=== PATIENT | female | born 1990 | race Caucasian/White ===

== ENCOUNTER 2018-07-06 19:42 | Emergency (ER) | payer OTHER ==
--- NOTE | 2018-07-06 20:11 | ERPHSYRPT ---
- History of Present Illness Time Seen by Provider: 07/06/18 20:01 Historian: patient Exam Limitations: no limitations Patient Subjective Stated Complaint: PT C/O CP SINCE WAKING THIS MORNING ET PALPITATIONS. PT C/O INTERMITTENT CP X 2 MONTHS, MORE FREQUENT IN LAST MONTH. PT STATES AROUND 10 DAYS AGO SHE "ALMOST PASSED OUT" WHEN SHE STARTED HAVING CP WHILE WORKING OUT. Triage Nursing Assessment: PINK/WARM/DRY, RESP EASY, A&OX4, STEADY GAIT TO ROOM FROM WAITING AREA. EKG DONE NO DISTRESS NOTED Physician History: 27-year-old white female previously healthy arrives with complaint of pain anterior chest located with 1 finger on the left upper chest lateral to the sternal border described as a tightness feels like she has a hard time breathing symptoms off and on for the past 2 weeks states it is been worse when she's added activity she states she felt like she passed out 2 weeks ago with activity states she woke up this morning had the above noted pain it has been going on all day she has had some slight shortness of breath she has no nausea no vomiting She apparently has been feeling as if her heart has been racing at times felt her heart rate of 127 home. Past medical history is negative past surgical history is negative Past surgical history negative Social history denies tobacco alcohol or illicit drug use Timing/Duration: other (intermittent chest pain for 2 weeks continuous since 9: 00 th) Quality: tightness Location: other (left upper anterior chest) Severity of Pain-Max: moderate Severity of Pain-Current: mild Modifying Factors: Improves With: exertion. Worsens With: antacids, breathing, coughing, defecating, eating, lying down, morphine, movement, nitroglycerin, oxygen, palpation, rest, aspirin, sitting up, change in position Associated Symptoms: palpitations, shortness of breath, No nausea, No vomiting, No heartburn, No abdominal pain, No cough, No hurts to breathe, No diaphoresis, No chills, No fever, No fatigue, No weakness, No swelling/lump in chest, No syncope, No rash, No headache, No dizziness, No back pain Prior Chest Pain/Cardiac Workup: no prior chest pain Nitro Today/Relief: no nitro taken today Aspirin Treatment Today: 81 mg x 4, provided by ED Allergies/Adverse Reactions: No Known Drug Allergies Allergy (Verified 07/06/18 19:58) Hx Tetanus, Diphtheria Vaccination/Date Given: Yes Hx Influenza Vaccination/Date Given: No Hx Pneumococcal Vaccination/Date Given: No - Review of Systems Constitutional: No Fever, No Chills Eyes: No Symptoms Ears, Nose, & Throat: No Symptoms Respiratory: Dyspnea, No Cough, No Cyanosis, No Dyspnea on Exertion (BALDERRAMA), No Stridor, No Wheezing Cardiac: Chest Pain, Palpitations, No Edema, No Syncope, No Orthopnea, No PND Abdominal/Gastrointestinal: No Abdominal Pain, No Nausea, No Vomiting, No Diarrhea Genitourinary Symptoms: No Dysuria Musculoskeletal: No Back Pain, No Neck Pain Skin: No Rash Neurological: No Symptoms, No Dizziness, No Focal Weakness, No Sensory Changes Psychological: No Symptoms Endocrine: No Symptoms All Other Systems: Reviewed and Negative - Past Medical History Pertinent Past Medical History: Yes Neurological History: No Pertinent History ENT History: No Pertinent History Cardiac History: No Pertinent History Respiratory History: No Pertinent History Endocrine Medical History: No Pertinent History Musculoskeletal History: No Pertinent History GI Medical History: No Pertinent History History: No Pertinent History Psycho-Social History: No Pertinent History Female Reproductive Disorders: No Pertinent History Other Medical History: NO OTHER MEDICAL ISSUES NOTED - Past Surgical History Past Surgical History: Yes Neuro Surgical History: No Pertinent History Cardiac: No Pertinent History Respiratory: No Pertinent History Gastrointestinal: No Pertinent History Genitourinary: No Pertinent History Musculoskeletal: Other Female Surgical History: Tubal Ligation Other Surgical History: TENDON REPAIR LEFT KNEE, TUBAL LIGATION - Social History Smoking Status: Former smoker Exposure to second hand smoke: Yes Drug Use: none Patient Lives Alone: No - Female History Hx Last Menstrual Period: APPROX 10-12 DAYS AGO Hx Now: No - Nursing Vital Signs Nursing Vital Signs: Initial Vital Signs Temperature 98.4 F 07/06/18 19:42 Pulse Rate 83 07/06/18 19:42 Respiratory Rate 14 07/06/18 19:42 Blood Pressure 139/90 07/06/18 19:42 O2 Sat by Pulse Oximetry 95 07/06/18 19:42 Pain Scale Pain Intensity 3 - Physical Exam General Appearance: no apparent distress, alert Eye Exam: PERRL/EOMI ( AND we can go ahead ), eyes nml inspection Ears, Nose, Throat Exam: normal ENT inspection, moist mucous membranes Neck Exam: normal inspection, non-tender, supple, full range of motion Respiratory Exam: normal breath sounds, lungs clear, No respiratory distress Cardiovascular Exam: regular rate/rhythm, normal heart sounds, capillary refill <2 sec Gastrointestinal/Abdomen Exam: soft, No tenderness, No mass Back Exam: normal inspection, No CVA tenderness, No vertebral tenderness Extremity Exam: normal inspection, normal range of motion Neurologic Exam: alert, oriented x 3, cooperative, manager employee relations II-XII nml as tested, normal mood/affect, sensation nml, No motor deficits Skin Exam: normal color, warm, dry SpO2 Interpretation: normal (95%) SpO2: 95 - Course Nursing assessment & vital signs reviewed: Yes EKG Interpreted by Me: RATE (81 bpm), Sinus Rhythm, NORMAL AXIS, Other (EKG: Sinus rhythm, 81 bpm, normal axis, no acute ST or T wave changes noted) - Radiology Exams Chest X-ray Interpretation: Interpreted by me (chest x-ray: No acute disease process noted) Ordered Tests: Active Orders 24 hr Category Date Time Status Hr Clerk STAT Care 07/06/18 20:06 Active EKG-ER Only STAT Care 07/06/18 20:05 Active IV Insertion STAT Care 07/06/18 20:05 Active Pulse Oximetry (ED) STAT Care 07/06/18 20:05 Active CHEST 1 VIEW (PORTABLE) Stat Exams 07/06/18 20:11 Taken CBC W DIFF Stat Lab 07/06/18 19:50 Completed CMP Stat Lab 07/06/18 19:50 Completed D-DIMER QUANTITATION Stat Lab 07/06/18 19:50 Completed HCG QUALITATIVE,SERUM Stat Lab 07/06/18 17:00 Completed TROPONIN Q3H Lab 07/06/18 20:15 Completed Medication Summary Discontinued Medications Generic Name Dose Route Start Last Admin Trade Name Freq PRN Reason Stop Dose Admin Aspirin 324 mg 07/06/18 20:12 07/06/18 20:16 Baby Aspirin 81 Mg Chew PO 07/06/18 20:13 324 mg STAT ONE Administration Sodium Chloride 1,000 mls @ 999 mls/hr 07/06/18 20:21 07/06/18 20:49 Sodium Chloride 0.9% 1000 Ml IV 07/06/18 21:21 Not Given .Q1H1M STA Sodium Chloride Confirm 07/06/18 20:43 Sodium Chloride 0.9% 1000 Ml Administered 07/06/18 20:44 Dose 1,000 mls @ ud .ROUTE .STK-MED ONE Lab/Rad Data: Laboratory Result Diagrams 07/06/18 19:50 07/06/18 19:50 Laboratory Results 07/06/18 07/06/18 07/06/18 Range/Units 20:15 19:50 19:50 WBC (4.0-10.5) K/mm3 RBC (4.1-5.4) M/mm3 Hgb (12.0-16.0) gm/dl Hct (35-47) % MCV (78-100) fl MCH (26-32) pg MCHC (32-36) g/dl RDW (11.5-14.0) % Plt Count (150-450) K/mm3 MPV (6-9.5) fl Gran % (36.0-66.0) % Eos # (Auto) (0-0.5) Absolute Lymphs (auto) (1.0-4.6) Absolute Monos (auto) (0.0-1.3) Lymphocytes % (24.0-44.0) % Monocytes % (0.0-12.0) % Eosinophils % (0.00-5.0) % Basophils % (0.0-0.4) % Absolute Granulocytes (1.4-6.9) Basophils # (0-0.4) D-Dimer 264 (215-500) ng/mL Sodium 139 (137-145) mmol/L Potassium 3.9 (3.5-5.1) mmol/L Chloride 105 (98-107) mmol/L Carbon Dioxide 25 (22-30) mmol/L Anion Gap 13.1 (5-15) MEQ/L BUN 10 (7-17) mg/dL Creatinine 0.64 (0.52-1.04) mg/dL Estimated GFR > 60.0 ML/MIN Glucose 84 (74-106) mg/dL Calcium 10.0 (8.4-10.2) mg/dL Total Bilirubin 0.30 (0.2-1.3) mg/dL AST 17 (14-36) U/L ALT 20 (0-35) U/L Alkaline Phosphatase 73 (38-126) U/L Troponin I < 0.012 (0.000-0.034) ng/mL Serum Total Protein 7.5 (6.3-8.2) g/dL Albumin 4.1 (3.5-5.0) g/dL Serum , Qual (Negative) 07/06/18 07/06/18 Range/Units 19:50 17:00 WBC 11.8 H (4.0-10.5) K/mm3 RBC 4.16 (4.1-5.4) M/mm3 Hgb 12.8 (12.0-16.0) gm/dl Hct 38.6 (35-47) % MCV 92.8 (78-100) fl MCH 30.8 (26-32) pg MCHC 33.2 (32-36) g/dl RDW 13.1 (11.5-14.0) % Plt Count 300 (150-450) K/mm3 MPV 9.9 H (6-9.5) fl Gran % 63.7 (36.0-66.0) % Eos # (Auto) 0.05 (0-0.5) Absolute Lymphs (auto) 3.57 (1.0-4.6) Absolute Monos (auto) 0.64 (0.0-1.3) Lymphocytes % 30.3 (24.0-44.0) % Monocytes % 5.4 (0.0-12.0) % Eosinophils % 0.4 (0.00-5.0) % Basophils % 0.2 (0.0-0.4) % Absolute Granulocytes 7.52 H (1.4-6.9) Basophils # 0.02 (0-0.4) D-Dimer (215-500) ng/mL Sodium (137-145) mmol/L Potassium (3.5-5.1) mmol/L Chloride (98-107) mmol/L Carbon Dioxide (22-30) mmol/L Anion Gap (5-15) MEQ/L BUN (7-17) mg/dL Creatinine (0.52-1.04) mg/dL Estimated GFR ML/MIN Glucose (74-106) mg/dL Calcium (8.4-10.2) mg/dL Total Bilirubin (0.2-1.3) mg/dL AST (14-36) U/L ALT (0-35) U/L Alkaline Phosphatase (38-126) U/L Troponin I (0.000-0.034) ng/mL Serum Total Protein (6.3-8.2) g/dL Albumin (3.5-5.0) g/dL Serum , Qual NEGATIVE (Negative) - Progress Progress: improved Air Movement: fair Progress Note: 07/06/18 21:23 27-year-old white female arrives with complaint of intermittent chest pain usually worse with activity off-and-on for the past 2 weeks. She states she felt like she was given a pass out 2 weeks ago. She states that she had tightness in her upper anterior chest since this morning some slight shortness of breath. Physical examination on this patient is essentially normal lungs are clear heart is regular pulses are symmetrical. EKG sinus rhythm 81 bpm normal axis no acute ST or T wave changes normal EKG. Chest x-ray essentially normal chemistry essentially normal CBC white count slightly elevated 11.1 hemoglobin 12.8 hematocrit 38.6. D-dimer within normal limits troponin within normal limits. Patient is in no acute distress at this time she was given aspirin on arrival. Patient has been offered repeat troponin she does not want to take this. Will plan to discharge patient because patient's symptoms occur with activity Will have her follow-up with her family doctor and avoid stress. Patient to return for acute distress or for severe symptoms. - Departure Departure Disposition: Home Clinical Impression: Non-cardiac chest pain, Palpitations Condition: Fair Critical Care Time: No Referrals: MISTY MARROQUIN [Primary Care Provider] - Instructions: Atypical Chest Pain, Palpitations (DC) Additional Instructions: Return home. Plenty of fluids. Rest avoid stressful activity. Follow-up with your family doctor. Return for acute distress or for severe symptoms.
[2018-07-06] MEDS ORDERED: BABY ASPIRIN 81 MG CHEW PO ONE (20:12)
[2018-07-06] MEDS ORDERED: Sodium Chloride 0.9% 1000 ML 1,000 ML IV STA (20:21)
[2018-07-06 20:24] LABS: BASOPHIL % 0.2 % (0.0-0.4); Basophil (Absolute #) 0.02 (0-0.4); Eosinophil % 0.4 % (0.00-5.0); Eosinophil (Absolute #) 0.05 (0-0.5); Granulocyte Absolute (ANC) 7.52 (1.4-6.9); Granulocytes % 63.7 % (36.0-66.0); Hematocrit 38.6 % (35-47); Hemoglobin 12.8 gm/dl (12.0-16.0); Lymphocyte (Absolute #) 3.57 (1.0-4.6); Lymphocytes % 30.3 % (24.0-44.0); Mean Cell Volume 92.8 fl (78-100); Mean Corpuscular Hemoglobin 30.8 pg (26-32); Mean Corpuscular Hgb Concent. 33.2 g/dl (32-36); Mean Platelet Volume 9.9 fl (6-9.5); Monocyte (Absolute #) 0.64 (0.0-1.3); Monocytes % 5.4 % (0.0-12.0); Platelet Count 300 K/mm3 (150-450); Red Blood Count 4.16 M/mm3 (4.1-5.4); Red Cell Distribution Width 13.1 % (11.5-14.0); White Blood Count 11.8 K/mm3 (4.0-10.5)
[2018-07-06 20:35] LABS: ALBUMIN 4.1 g/dL (3.5-5.0); ALKALINE PHOSPHATASE 73 U/L (38-126); ANION GAP 13.1 MEQ/L (5-15); BLOOD UREA NITROGEN 10 mg/dL (7-17); CHLORIDE 105 mmol/L (98-107); Carbon Dioxide 25 mmol/L (22-30); Creatinine 1 0.64 mg/dL (0.52-1.04); Glucose 84 mg/dL (74-106); Potassium 3.9 mmol/L (3.5-5.1); SGOT/AST 17 U/L (14-36); SGPT/ALT 20 U/L (0-35); SODIUM 139 mmol/L (137-145); Total Protein 7.5 g/dL (6.3-8.2)
[2018-07-06] MEDS ORDERED: Sodium Chloride 0.9% 1000 ML 1,000 ML ONE (20:43)
[2018-07-06 21:45] VITALS: BP 108/63; PULSE 79
[2018-07-07 00:07] VITALS: O2SAT 95
--- NOTE | 2018-07-07 08:53 | XRAY ---
Indication: Chest pain. Comparison: None Portable chest demonstrates normal heart, lungs, and bony thorax.
== END 2018-07-06 21:53 | disposition home or self-care (01) ==
LOC: ED 19:42
DX: R07.89 Other chest pain (principal); R00.2 Palpitations
CPT/HCPCS: 36000; 36415; 71045; 80053; 81025; 84484; 85025; 85379; 93005; 93041; 99284; A9270-GY